=== PATIENT | female | born 1955 | race Caucasian/White ===

== ENCOUNTER 2018-08-24 07:30 | Day surgery (SDC) | payer MEDICARE, BC ==
[2018-08-24] MEDS ORDERED: Lactated Ringers 1,000 ML IV SCH (08:45)
[2018-08-24] MEDS ORDERED: Midazolam 1 MG/ML 2 ML SDV ONE (09:00)
[2018-08-24] MEDS ORDERED: fentaNYL 100 MCG/2 ML SDV ONE (09:00)
[2018-08-24] MEDS ORDERED: Propofol 200 MG/20 ML SDV ONE ×2 (09:00→09:47)
[2018-08-24 11:07] VITALS: BP 130/89
--- NOTE | 2018-08-24 11:50 | OR ---
DATE OF PROCEDURE: 08/24/2018 SURGEON: Jim Camacho MD PREOP DIAGNOSIS: History of colon polyps. POSTOP DIAGNOSES: Two small colon polyps, 30 cm and 10 cm from the anal verge, incomplete colonoscopy only to the right colon. PROCEDURE PERFORMED: Colonoscopy to the right colon with biopsy resection of 2 small colon polyps, 30 cm and 10 cm from the anal verge. ANESTHESIA: IV anesthesia with monitored anesthesia care. INDICATION: This 63-year-old white female is referred for a colonoscopy. She has history of colon polyps. Her last colonoscopic exam was done 5 years ago. I counseled her for the procedure including risks and alternatives and she gave her informed consent to proceed. PROCEDURE DETAILS: The patient was placed in the left lateral decubitus position. IV anesthesia was administered by the Anesthesia Service. Time-out was held. A rectal exam was performed, which was unremarkable. The flexible video Olympus colonoscope was introduced through her anus, up her rectum and out her colon all the way to the right colon. We attempted to reach the cecum, but we were unable to do this despite our best efforts. This included applying abdominal compression of the patient both the left lateral and supine positions. When it was obvious that we are not going to reach the cecum despite using the entire scope, the scope was slowly withdrawn examining the mucosa throughout. No mucosal abnormalities were noted till we reached 30 cm from the anal verge. Here, a small polyp was seen, which was removed with a few bites of biopsy forceps. The scope was withdrawn further with another small one seen 10 cm from anal verge, which also was removed with the biopsy forceps. The scope was brought back in the distal rectum where it was retroflexed. The distal rectum appeared unremarkable. The scope was straightened and removed. She tolerated the procedure well. We will order a barium enema for a week or two from now. Jim Camacho MD /[id number]
== END 2018-08-24 11:26 | disposition home or self-care (01) ==
LOC: JP.SDS 07:30
PROVIDERS: ATTEND Surgery
DX: Z12.11 Encounter for screening for malignant neoplasm of colon (principal); D12.5 Benign neoplasm of sigmoid colon; K62.1 Rectal polyp; K21.9 Gastro-esophageal reflux disease without esophagitis; E78.5 Hyperlipidemia, unspecified; F32.9 Major depressive disorder, single episode, unspecified; F17.200 Nicotine dependence, unspecified, uncomplicated; Z86.010 Personal history of colon polyps; Z88.5 Allergy status to narcotic agent; Z88.8 Allergy status to other drugs, medicaments and biological substances
CPT/HCPCS: 45380; J2250; J2704; J3010; J7120

== ENCOUNTER 2019-06-10 11:29 | Emergency (ER) | payer MEDICARE, BC ==
[2019-06-10] MEDS ORDERED: Albuterol/Ipratropium 3.0-0.5 MG/3 ML Neb Soln NEB ONE (12:02)
[2019-06-10 12:03] VITALS: BP 136/87; PULSE 91
[2019-06-10] MEDS ORDERED: methylPREDNISolone Sodium Succinate 125 MG/2 ML SDV IM ONE (12:05)
--- NOTE | 2019-06-10 12:08 | EDM.PDOC ---
ED HPI GENERAL MEDICAL PROBLEM - General Chief Complaint: Respiratory Problem Stated Complaint: CHEST CONGESTION Time Seen by Provider: 06/10/19 11:40 Source of Information: Reports: Patient History Limitations: Reports: No Limitations - History of Present Illness INITIAL COMMENTS - FREE TEXT/NARRATIVE: Started Wednesday; stayed in a motel, states it was "filthy". She has COPD, and that is when her breathing became more labored; cough and wheezing, unsure of fever. Lots of sputum/mucus production. Green and yellow. Onset: Gradual Location: Reports: Chest Improves with: Reports: None Worsens with: Reports: None Associated Symptoms: Reports: Cough, Weakness - Related Data Allergies Allergy/AdvReac Type Severity Reaction Status Date / Time codeine AdvReac Nausea Verified 08/23/18 10:03 hydrochlorothiazide AdvReac Abdominal Verified 08/23/18 10:03 [From Hyzaar] Pain losartan [From Hyzaar] AdvReac Abdominal Verified 08/23/18 10:03 Pain Home Meds: Home Meds Aspirin [Rex Chewable Aspirin] 81 mg PO DAILY 01/19/15 [History] Escitalopram [Lexapro] 20 mg PO DAILY 01/19/15 [History] Venlafaxine [Effexor XR] 75 mg PO DAILY 01/19/15 [History] Albuterol Sulfate [Proair Hfa] 8.5 gm IH Q4H PRN #2 hfa.aer.ad 01/25/15 [Rx] Estrogens, Conjugated [Premarin] 0.625 mg PO .TWICE WEEKLY 08/23/18 [History] Fluticasone Propionate [Flonase Allergy Relief] 2 spray NASBOTH DAILY 08/23/18 [ History] Multivitamin [Multiple Vitamins] 1 tab PO DAILY 08/23/18 [History] Tiotropium [Spiriva Handihaler] 1 cap INH DAILY 08/23/18 [History] amLODIPine Besylate [Amlodipine Besylate] 5 mg PO DAILY 08/23/18 [History] Past Medical History HEENT History: Reports: Impaired Vision, Sinusitis Other HEENT History: wears glasses Cardiovascular History: Reports: Hypertension, SOB on Exertion Respiratory History: Reports: COPD, SOB Gastrointestinal History: Reports: Colon Polyp, Hemorrhoids Genitourinary History: Reports: None 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, Musculoskeletal History: Reports: Arthritis Neurological History: Reports: Headaches, Chronic Psychiatric History: Reports: Depression Oncologic (Cancer) History: Reports: Other (See Below) Other Oncologic History: chondrosarcoma upper left arm - Infectious Disease History Infectious Disease History: Reports: Chicken Pox, Measles, Mumps, Rubella, Shingles - Past Surgical History HEENT Surgical History: Reports: Adenoidectomy, Cataract Surgery, Tonsillectomy Cardiovascular Surgical History: Reports: None Respiratory Surgical History: Reports: None GI Surgical History: Reports: Colonoscopy, Polypectomy Female Surgical History: Reports: Breast Biopsy, Hysterectomy, Salpingo- Oophorectomy Neurological Surgical History: Reports: None Musculoskeletal Surgical History: Reports: None Oncologic Surgical History: Reports: Other (See Below) Other Oncologic Surgeries/Procedures: upper left arm surgery r/t chondrosarcoma Dermatological Surgical History: Reports: None Social & Family History - Family History Cardiac: Reports: CAD, Pacemaker Oncologic: Reports: Lung - Caffeine Use Caffeine Use: Reports: Coffee ED ROS GENERAL - Review of Systems Review Of Systems: See Below Constitutional: Reports: Weakness HEENT: Reports: No Symptoms Respiratory: Reports: Shortness of Breath, Wheezing, Cough, Sputum Cardiovascular: Reports: No Symptoms GI/Abdominal: Reports: No Symptoms : Reports: No Symptoms Musculoskeletal: Reports: No Symptoms Skin: Reports: No Symptoms ED EXAM, GENERAL - Physical Exam Exam: See Below Exam Limited By: No Limitations General Appearance: Alert, WD/WN, No Apparent Distress Throat/Mouth: Normal Inspection, Normal Lips, Normal Teeth Head: Atraumatic, Normocephalic Neck: Normal Inspection, Supple, Non-Tender, Full Range of Motion Respiratory/Chest: Decreased Breath Sounds, Wheezing, Prolonged Expiration, Other (increased wob) Cardiovascular: Regular Rate, Rhythm GI/Abdominal: Normal Bowel Sounds, Soft, Non-Tender Back Exam: Full Range of Motion Extremities: Normal Inspection, Normal Range of Motion Neurological: Alert, Oriented, CN II-XII Intact Psychiatric: Normal Affect, Normal Mood Skin Exam: Warm, Intact Course - Vital Signs Last Recorded V/S: Last Vital Signs Temp 96.7 F 06/10/19 12:24 Pulse 91 06/10/19 12:24 Resp 20 06/10/19 12:24 BP 136/87 06/10/19 12:24 Pulse Ox 91 L 07/20/19 12:24 - Orders/Labs/Meds Orders: Active Orders 24 hr Category Date Time Status RT Aerosol Therapy [RC] ASDIRECTED Care 06/10/19 12:02 Active Meds: Medications Discontinued Medications Generic Name Dose Route Start Last Admin Trade Name Brayden PRN Reason Stop Dose Admin Albuterol/Ipratropium 3 ml 06/10/19 12:02 06/10/19 12:08 Duoneb 3.0-0.5 Mg/3 Ml NEB 06/10/19 12:03 3 ml ONETIME ONE Administration Methylprednisolone Sodium Succinate 125 mg 06/10/19 12:05 06/10/19 12:28 Solu-Medrol IM 06/10/19 12:06 125 mg ONETIME ONE Administration - Re-Assessments/Exams Free Text/Narrative Re-Assessment/Exam: 06/10/19 12:08 Duoneb ordered; 06/10/19 15:20 [place] better after neb treatment; Chest xray taken; awaiting results. Departure - Departure Time of Disposition: 13:37 Disposition: Home, Self-Care 01 Condition: Fair Clinical Impression: COPD exacerbation, Bronchitis, COPD, Severe chronic obstructive pulmonary disease - Discharge Information *PRESCRIPTION DRUG MONITORING PROGRAM REVIEWED*: Not Applicable *COPY OF PRESCRIPTION DRUG MONITORING REPORT IN PATIENT NARINDER: Not Applicable Instructions: Chronic Obstructive Pulmonary Disease, [id number] Referrals: PCP,None [Primary Care Provider] - Forms: ED Department Discharge Additional Instructions: Drink plenty of fluids Take medications as directed Follow up with your doctor next week Return to ER if symptoms worsen Call with questions. - Problem List & Annotations (1) COPD exacerbation SNOMED Code(s): 077833165 Code(s): J44.1 - CHRONIC OBSTRUCTIVE PULMONARY DISEASE W (ACUTE) EXACERBATION Status: Acute Priority: Medium - Problem List Review Problem List Initiated/Reviewed/Updated: Yes - My Orders Last 24 Hours: My Active Orders 06/10/19 12:02 RT Aerosol Therapy [RC] ASDIRECTED - Assessment/Plan Last 24 Hours: My Active Orders 06/10/19 12:02 RT Aerosol Therapy [RC] ASDIRECTED
--- NOTE | 2019-06-10 15:18 | CRLCR ---
HISTORY: Shortness of breath. FINDINGS: Two views of the chest are provided. The lungs are clear and there is no evidence for pleural effusion or pneumothorax. Cardiac silhouette size is within normal limits. Moderate aortic ectasia is noted. IMPRESSION: No findings for pneumonia. Dictated by Ted Kitchen MD @ Jun 10 2019 3:16PM Signed by Dr. Ted Kitchen @ Jun 10 2019 3:17PM
== END 2019-06-10 13:45 | disposition home or self-care (01) ==
LOC: JP.ED 11:29
DX: J44.1 Chronic obstructive pulmonary disease with (acute) exacerbation (principal); J40 Bronchitis, not specified as acute or chronic; I10 Essential (primary) hypertension; F32.9 Major depressive disorder, single episode, unspecified; M19.90 Unspecified osteoarthritis, unspecified site; Z79.82 Long term (current) use of aspirin; Z79.899 Other long term (current) drug therapy; Z98.49 Cataract extraction status, unspecified eye; Z98.890 Other specified postprocedural states; Z90.710 Acquired absence of both cervix and uterus; Z88.5 Allergy status to narcotic agent; Z88.8 Allergy status to other drugs, medicaments and biological substances
CPT/HCPCS: 71046; 94640; 96372; 99284; J2930; J7620-GY

== ENCOUNTER 2019-06-29 09:07 | Inpatient (IN) | payer MEDICARE, BC ==
[2019-06-29] MEDS ORDERED: HYDROmorphone 0.5 MG/0.5 ML Syringe IVPUSH ONE ×2 (09:33→14:40)
--- NOTE | 2019-06-29 09:38 | EDM.PDOC ---
ED HPI GENERAL MEDICAL PROBLEM - General Chief Complaint: Abdominal Pain Stated Complaint: RT SIDE ABD AND BACK PAIN Time Seen by Provider: 06/29/19 09:25 Source of Information: Reports: Patient History Limitations: Reports: No Limitations - History of Present Illness INITIAL COMMENTS - FREE TEXT/NARRATIVE: 64-year-old female who arrives here emergency room very uncomfortable with right lower quadrant and right flank pain for the past couple of days. It became markedly worse overnight. No fevers or chills, no bowel changes or dysuria. She was recently treated for bronchitis. Onset: Gradual Duration: Day(s): (12-24 hours) Location: Reports: Abdomen, Back Worsens with: Reports: Movement Associated Symptoms: Reports: Cough, Malaise. Denies: Chest Pain, Fever/Chills , Nausea/Vomiting Right Lower Abdomen Pain Score (Numeric/FACES): 9 - Related Data Allergies Allergy/AdvReac Type Severity Reaction Status Date / Time codeine AdvReac Nausea Verified 06/29/19 09:21 hydrochlorothiazide AdvReac Abdominal Verified 06/29/19 09:21 [From Hyzaar] Pain losartan [From Hyzaar] AdvReac Abdominal Verified 06/29/19 09:21 Pain Home Meds: Home Meds Aspirin [Rex Chewable Aspirin] 81 mg PO DAILY 01/19/15 [History] Escitalopram [Lexapro] 20 mg PO DAILY 01/19/15 [History] Venlafaxine [Effexor XR] 75 mg PO DAILY 01/19/15 [History] Albuterol Sulfate [Proair Hfa] 8.5 gm IH Q4H PRN #2 hfa.aer.ad 01/25/15 [Rx] Estrogens, Conjugated [Premarin] 0.625 mg PO .TWICE WEEKLY 08/23/18 [History] Fluticasone Propionate [Flonase Allergy Relief] 2 spray NASBOTH DAILY 08/23/18 [ History] Multivitamin [Multiple Vitamins] 1 tab PO DAILY 08/23/18 [History] Tiotropium [Spiriva Handihaler] 1 cap INH DAILY 08/23/18 [History] amLODIPine Besylate [Amlodipine Besylate] 5 mg PO DAILY 08/23/18 [History] Past Medical History HEENT History: Reports: Impaired Vision, Sinusitis Other HEENT History: wears glasses Cardiovascular History: Reports: Hypertension, SOB on Exertion Respiratory History: Reports: COPD, SOB Gastrointestinal History: Reports: Colon Polyp, Hemorrhoids Genitourinary History: Reports: None 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, Musculoskeletal History: Reports: Arthritis Neurological History: Reports: Headaches, Chronic Psychiatric History: Reports: Depression Oncologic (Cancer) History: Reports: Other (See Below) Other Oncologic History: chondrosarcoma upper left arm - Infectious Disease History Infectious Disease History: Reports: Chicken Pox, Measles, Mumps, Rubella, Shingles - Past Surgical History HEENT Surgical History: Reports: Adenoidectomy, Cataract Surgery, Tonsillectomy GI Surgical History: Reports: Colonoscopy, Polypectomy Female Surgical History: Reports: Breast Biopsy, Hysterectomy, Salpingo- Oophorectomy Oncologic Surgical History: Reports: Other (See Below) Other Oncologic Surgeries/Procedures: upper left arm surgery r/t chondrosarcoma Social & Family History - Family History Cardiac: Reports: CAD, Pacemaker Oncologic: Reports: Lung - Tobacco Use Smoking Status *Q: Current Every Day Smoker Years of Tobacco use: 45 Packs/Tins Daily: 0.5 - Caffeine Use Caffeine Use: Reports: Coffee - Alcohol Use Days Per Week of Alcohol Use: 7 Number of Drinks Per Day: 2 Total Drinks Per Week: 14 - Recreational Drug Use Recreational Drug Use: No ED ROS GENERAL - Review of Systems Review Of Systems: See Below Constitutional: Denies: Fever, Chills HEENT: Reports: No Symptoms Respiratory: Reports: Shortness of Breath, Wheezing, Cough GI/Abdominal: Reports: Abdominal Pain. Denies: Nausea, Vomiting : Reports: Flank Pain (Right side) Skin: Reports: No Symptoms Neurological: Denies: Headache ED EXAM, GENERAL - Physical Exam Exam: See Below Exam Limited By: No Limitations General Appearance: Alert, Mild Distress (Looks fairly uncomfortable) Eye Exam: Bilateral Eye: Normal Inspection (No jaundice) Respiratory/Chest: Wheezing (Scattered expiratory wheezes are still heard along with a few rhonchi) Cardiovascular: Regular Rate, Rhythm GI/Abdominal: Normal Bowel Sounds, Tender (Very tender along the right anterior abdomen and right lower quadrant with some guarding in the lower quadrant. Equivocal rebound tenderness) Neurological: Alert, Oriented Psychiatric: Anxious Skin Exam: Warm, Dry Course - Vital Signs Last Recorded V/S: Last Vital Signs Temp 98.1 F 06/29/19 16:10 Pulse 100 06/29/19 16:21 Resp 17 06/29/19 16:21 BP 133/76 06/29/19 16:21 Pulse Ox 90 L 06/29/19 16:21 - Orders/Labs/Meds Orders: Active Orders 24 hr Category Date Time Status EKG Documentation Completion [RC] ASDIRECTED Care 06/29/19 13:57 Active Sodium Chloride 0.9% [Normal Saline] 1,000 ml Med 06/29/19 09:45 Active IV ASDIRECTED EKG 12 Lead [EK] Routine Ther 06/29/19 13:56 Ordered Medication Orders Hydrocodone Bitart/Acetaminophen ([place] 325-5 Mg) 2 tab PO Q4H PRN PRN Reason: Pain (moderate 4-6) Albuterol (Ventolin Hfa) 8.5 gm INH Q4H PRN PRN Reason: Shortness of Breath Benzocaine/Menthol (Cepacol Sore Throat) 1 lozenge MUCMEM Q1H PRN PRN Reason: Sore Throat Bisacodyl (Dulcolax) 5 mg PO DAILY PRN PRN Reason: Constipation Ropivacaine 36 ml/Dexamethasone 8 mg/Epinephrine HCl 0.4 mg/ Sodium Chloride 41.6 ml 0 ml NERVRT ASDIRECTED [facility] Docusate Sodium (Colace) 100 mg PO BID PRN PRN Reason: Constipation Fentanyl (Sublimaze) 50 mcg IVPUSH Q1H PRN PRN Reason: Pain (severe 7-10) Hydroxyzine HCl (Vistaril) 50 mg IM Q4H PRN PRN Reason: Nausea Sodium Chloride (Normal Saline) 1,000 mls @ 500 mls/hr IV ASDIRECTED [facility] Last Admin: 06/29/19 09:41 Dose: 500 mls/hr Piperacillin/Tazobactam/ (Dextrose 3.375 gm/ Premix) 50 mls @ 100 mls/hr IV Q6H [facility] Sodium Chloride (Normal Saline) 1,000 mls @ 125 mls/hr IV ASDIRECTED [facility] Non-Formulary Medication (Fluticasone Propionate [Flonase Allergy Relief]) 2 spray NASBOTH DAILY [facility] Senna/Docusate Sodium (Senna Plus) 1 tab PO BID PRN PRN Reason: Constipation Venlafaxine HCl (Effexor Xr) 75 mg PO DAILY [facility] Labs: Laboratory Tests 06/29/19 06/29/19 06/29/19 Range/Units 09:33 09:40 09:40 WBC 7.6 (4.5-11.0) K/uL RBC 4.81 (3.30-5.50) M/uL Hgb 14.7 (12.0-15.0) g/dL Hct 44.6 (36.0-48.0) % MCV 93 (80-98) fL MCH 31 (27-31) pg MCHC 33 (32-36) % Plt Count 263 (150-400) K/uL Neut % (Auto) 75 H (36-66) % Lymph % (Auto) 17 L (24-44) % [facility] % (Auto) 7 H (2-6) % Eos % (Auto) 1 L (2-4) % Baso % (Auto) 0 (0-1) % Sodium 135 L (140-148) mmol/L Potassium 4.1 (3.6-5.2) mmol/L Chloride 97 L (100-108) mmol/L Carbon Dioxide 29 (21-32) mmol/L Anion Gap 13.1 (5.0-14.0) mmol/L BUN 10 (7-18) mg/dL Creatinine 0.7 (0.6-1.0) mg/dL Est Cr Clr Drug Dosing 72.10 mL/min Estimated GFR (MDRD) > 60 (>60) Glucose 94 (74-106) mg/dL Calcium 9.3 (8.5-10.1) mg/dL Total Bilirubin 0.5 D (0.2-1.0) mg/dL AST 19 (15-37) U/L ALT 24 (12-78) U/L Alkaline Phosphatase 100 (46-116) U/L Total Protein 7.7 (6.4-8.2) g/dL Albumin 3.8 (3.4-5.0) g/dL Globulin 3.9 H (2.3-3.5) g/dL Albumin/Globulin Ratio 1.0 L (1.2-2.2) Urine Color Yellow (YELLOW) Urine Appearance Clear (CLEAR) Urine pH 7.0 (5.0-8.0) Ur Specific [place] 1.015 (1.008-1.030) Urine Protein Negative (NEGATIVE) mg/dL Urine Glucose (UA) Normal (NEGATIVE) mg/dL Urine Ketones Negative (NEGATIVE) mg/dL Urine Occult Blood Negative (NEGATIVE) Urine Nitrite Negative (NEGATIVE) Urine Bilirubin Negative (NEGATIVE) Urine Urobilinogen Normal (0.2-1.0) EU/dL Ur Leukocyte Esterase Negative (NEGATIVE) Urine RBC 0-5 (0-5) Urine WBC 0-5 (0-5) Ur Epithelial Cells Rare Amorphous Sediment Not seen Urine Bacteria Rare Urine Mucus Not seen Meds: Medications Generic Name Dose Route Start Last Admin Trade Name Freq PRN Reason Stop Dose Admin Hydrocodone Bitart/Acetaminophen 2 tab 06/29/19 16:04 [place] 325-5 Mg PO Q4H PRN Pain (moderate 4-6) Albuterol 8.5 gm 06/29/19 16:06 Ventolin Hfa INH Q4H PRN Shortness of Breath Benzocaine/Menthol 1 lozenge 06/29/19 16:04 Cepacol Sore Throat MUCMEM Q1H PRN Sore Throat Bisacodyl 5 mg 06/29/19 16:04 Dulcolax PO DAILY PRN Constipation Ropivacaine 36 ml/ 0 ml 06/29/19 15:30 Dexamethasone 8 mg/ NERVRT Epinephrine HCl 0.4 mg/ Sodium ASDIRECTED [facility] Chloride 41.6 ml Docusate Sodium 100 mg 06/29/19 16:04 Colace PO BID PRN Constipation Fentanyl 50 mcg 06/29/19 16:04 Sublimaze IVPUSH Q1H PRN Pain (severe 7-10) Hydroxyzine HCl 50 mg 06/29/19 16:04 Vistaril IM Q4H PRN Nausea Sodium Chloride 1,000 mls @ 500 mls/hr 06/29/19 09:45 06/29/19 09:41 Normal Saline IV 500 mls/hr ASDIRECTED [facility] Administration Piperacillin/Tazobactam/ 50 mls @ 100 mls/hr 06/29/19 20:00 Dextrose 3.375 gm/ Premix IV Q6H [facility] Sodium Chloride 1,000 mls @ 125 mls/hr 06/29/19 16:15 Normal Saline IV ASDIRECTED [facility] Non-Formulary Medication 2 spray 06/30/19 09:00 Fluticasone Propionate [Flonase Allergy Relief] NASBOTH DAILY [facility] Senna/Docusate Sodium 1 tab 06/29/19 16:04 Senna Plus PO BID PRN Constipation Venlafaxine HCl 75 mg 06/30/19 09:00 Effexor Xr PO DAILY [facility] Discontinued Medications Generic Name Dose Route Start Last Admin Trade Name Paulq PRN Reason Stop Dose Admin Albuterol/Ipratropium 3 ml 06/29/19 15:00 06/29/19 15:06 Duoneb 3.0-0.5 Mg/3 Ml NEB 06/29/19 15:01 3 ml ONETIME ONE Administration Bupivacaine HCl/Epinephrine Bitart Confirm 06/29/19 15:11 Marcaine 0.5%/Epinephrine 1:200,000 Administered 06/29/19 15:12 Dose 50 ml .ROUTE .STK-MED ONE Dexamethasone Confirm 06/29/19 15:06 Dexamethasone Administered 06/29/19 15:07 Dose 4 mg .ROUTE .STK-MED ONE Fentanyl Confirm 06/29/19 15:06 Sublimaze Administered 06/29/19 15:07 Dose 250 mcg .ROUTE .STK-MED ONE Glycopyrrolate Confirm 06/29/19 15:06 Robinul Administered 06/29/19 15:07 Dose 1 mg .ROUTE .STK-MED ONE Hydromorphone HCl 0.5 mg 06/29/19 09:33 06/29/19 09:42 Dilaudid IVPUSH 06/29/19 09:34 0.5 mg ONETIME ONE Administration Hydromorphone HCl 0.5 mg 06/29/19 14:40 06/29/19 14:48 Dilaudid IVPUSH 06/29/19 14:41 0.5 mg ONETIME ONE Administration Piperacillin Sod/Tazobactam 50 mls @ 100 mls/hr 06/29/19 14:00 06/29/19 14:47 Sod 3.375 gm/ Sodium Chloride IV 100 mls/hr Q6H [facility] Administration Neostigmine Methylsulfate Confirm 06/29/19 15:06 Neostigmine Administered 06/29/19 15:07 Dose 5 mg .ROUTE .STK-MED ONE Ondansetron HCl Confirm 06/29/19 15:06 Zofran Administered 06/29/19 15:07 Dose 4 mg .ROUTE .STK-MED ONE Propofol Confirm 06/29/19 15:06 Diprivan 20 Ml Administered 06/29/19 15:07 Dose 200 mg .ROUTE .STK-MED ONE Rocuronium [place] Confirm 06/29/19 15:06 Zemuron Administered 06/29/19 15:07 Dose 50 mg .ROUTE .STK-MED ONE Succinylcholine Chloride Confirm 06/29/19 15:06 Quelicin Administered 06/29/19 15:07 Dose 200 mg .ROUTE .STK-MED ONE Sugammadex Sodium Confirm 06/29/19 16:04 Bridion Administered 06/29/19 16:05 Dose 200 mg .ROUTE .STK-MED ONE - Re-Assessments/Exams Free Text/Narrative Re-Assessment/Exam: 06/29/19 09:37 IV was started and the patient was given 500 mL of normal saline an hour, and 0.5 mg of IV Dilaudid. CBC CMP and UA were obtained. A CT scan of the abdomen and pelvis without contrast will be obtained. 06/29/19 16:25 White count was normal but CT showed mild inflammation around the appendix. Dr. Patterson of the surgical department was consulted to evaluate the patient for possible admission and treatment for acute appendicitis. Departure - Departure Time of Disposition: 15:37 Disposition: Admitted As Inpatient 65 Clinical Impression: Abdominal pain Qualifiers: Abdominal location: right lower quadrant Qualified Code(s): R10.31 - Right lower quadrant pain Appendicitis Qualifiers: Appendicitis type: acute appendicitis Acute appendicitis type: with localized peritonitis Appendicitis gangrene presence: without gangrene Appendicitis perforation presence: without perforation - Discharge Information - My Orders Last 24 Hours: My Active Orders 06/29/19 09:45 Sodium Chloride 0.9% [Normal Saline] 1,000 ml IV ASDIRECTED - Assessment/Plan Last 24 Hours: My Active Orders 06/29/19 09:45 Sodium Chloride 0.9% [Normal Saline] 1,000 ml IV ASDIRECTED
[2019-06-29] MEDS ORDERED: Sodium Chloride 0.9% 1,000 ML IV SCH (09:45)
--- NOTE | 2019-06-29 11:00 | CRLCT ---
INDICATION: Right abdominal and right flank pain. TECHNIQUE: A CT volumetric acquisition was performed of the abdomen and pelvis without intravenous contrast. Please note that all CT scans at this facility use dose modulation, iterative reconstruction, and/or weight-based dosing when appropriate to reduce radiation dose to as low as reasonably achievable. COMPARISON: The report from a CT abdomen/pelvis 12/06/2012 was reviewed, however no images available. FINDINGS: The unenhanced liver, gallbladder, spleen, pancreas, kidneys, and adrenal glands are negative. No urinary calculi. No hydronephrosis. No bowel dilation. Moderate amount of stool throughout the colon. The appendix contains air and is not dilated, however there is a minimal amount of fat stranding surrounding the distal portion of the appendix (series 2 images 109-112). This is of uncertain significance. No intraperitoneal free air or fluid. Aortoiliac vascular calcifications. Rectus diastasis with overlying intact fascia in the infraumbilical region containing a knuckle of nonobstructed bowel (series 2, image 131). Thoracolumbar curve. Degenerative changes of the spine and sacroiliac joints. The lung bases are clear. IMPRESSION: 1. Minimal amount of fat stranding surrounding the distal appendix which is otherwise nondilated. This is of uncertain significance. 2. No other acute findings in the abdomen or pelvis. Please note that all CT scans at this facility use dose modulation, iterative reconstruction, and/or weight-based dosing when appropriate to reduce radiation dose to as low as reasonably achievable. Dictated by Sada Ralph MD @ Jun 29 2019 10:40AM Signed by Dr. Sada Ralph @ Jun 29 2019 10:58AM
[2019-06-29] MEDS ORDERED: Piperacillin/Tazobactam 3.375 GM in Sodium Chloride 0.9% 50 ML IV SCH (14:00)
[2019-06-29] MEDS ORDERED: Albuterol/Ipratropium 3.0-0.5 MG/3 ML Neb Soln NEB ONE (15:00)
[2019-06-29] MEDS ORDERED: Rocuronium 50 MG/5 ML Vial ONE (15:06)
[2019-06-29] MEDS ORDERED: Succinylcholine 200 MG/10 ML MDV ONE (15:06)
[2019-06-29] MEDS ORDERED: Ondansetron 4 MG/2 ML SDV ONE (15:06)
[2019-06-29] MEDS ORDERED: Propofol 200 MG/20 ML SDV ONE (15:06)
[2019-06-29] MEDS ORDERED: Dexamethasone 4 MG/ML SDV ONE (15:06)
[2019-06-29] MEDS ORDERED: fentaNYL 250 MCG/5 ML SDV ONE (15:06)
[2019-06-29] MEDS ORDERED: Glycopyrrolate 0.2 MG/ML 5 ML MDV ONE (15:06)
[2019-06-29] MEDS ORDERED: Neostigmine Methylsulfate 1 MG/ML 5 ML Syringe ONE (15:06)
[2019-06-29] MEDS ORDERED: Bupivacaine 0.5%/EPINEPHrine 1:200,000 50 ML MDV ONE (15:11)
[2019-06-29] MEDS ORDERED: Ropivacaine 36 ML, dexAMETHasone 8 MG, EPINEPHrine 0.4 MG, Sodium Chloride 0.9% 41.6 ML NERVRT SCH ×4 (15:30)
[2019-06-29] MEDS ORDERED: fentaNYL 100 MCG/2 ML SDV IVPUSH PRN (16:04)
[2019-06-29] MEDS ORDERED: hydrOXYzine HCl 100 MG/2 ML SDV IM PRN (16:04)
[2019-06-29] MEDS ORDERED: Benzocaine/Cetylpyridinium/Menthol Lozenge MUCMEM PRN (16:04)
[2019-06-29] MEDS ORDERED: Sugammadex Sodium 200 MG/2 ML VIAL ONE (16:04)
[2019-06-29] MEDS ORDERED: Acetaminophen/HYDROcodone 325-5 MG Tab PO PRN (16:04)
[2019-06-29] MEDS ORDERED: Bisacodyl 5 MG Tab PO PRN (16:04)
[2019-06-29] MEDS ORDERED: Docusate Sodium 100 MG Cap PO PRN (16:04)
[2019-06-29] MEDS ORDERED: Albuterol 8 GM Inhaler INH PRN (16:06)
[2019-06-29] MEDS: Sodium Chloride 0.9% 1,000 ML IV SCH (18:39)
[2019-06-29] MEDS: Piperacillin/Tazobactam/Dext 3.375 GM in Premix Bag 1 BAG IV SCH (20:17)
[2019-06-29] MEDS ORDERED: Albuterol 0.083% 2.5 MG/3 ML Neb Soln NEB PRN (20:33)
[2019-06-29] MEDS ORDERED: Albuterol/Ipratropium 3.0-0.5 MG/3 ML Neb Soln NEB SCH (21:00)
[2019-06-29] MEDS: Albuterol/Ipratropium 3.0-0.5 MG/3 ML Neb Soln NEB SCH (21:44)
[2019-06-30] MEDS: Piperacillin/Tazobactam/Dext 3.375 GM in Premix Bag 1 BAG IV SCH ×3 (02:33→13:49)
[2019-06-30] MEDS: Sodium Chloride 0.9% 1,000 ML IV SCH (03:48)
--- NOTE | 2019-06-30 03:52 | CRLCR ---
INDICATION: Shortness of breath TECHNIQUE: Chest radiograph 2 views COMPARISON: 06/10/2019 FINDINGS: Mediastinum: The mediastinum is normal in appearance. The heart silhouette is normal in size and morphology. Minimal elevation left hemidiaphragm noted. Lung: Mild left basilar atelectasis is present. No sign of pleural effusion seen. No pneumothorax is identified. left proximal humerus but is partially obscured by overlying tubing material. IMPRESSIONS: 1. Mild left basilar atelectasis is present. 2. There may be an ill-defined sclerotic lesion in the left proximal humerus but is partially obscured by overlying tubing material. Dedicated views of the humerus recommended. Dictated by Jai Haas MD @ 06/30/2019 3:51:11 AM Dictated by: Jai Haas MD @ 06/30/2019 03:51:19 (Electronically Signed)
[2019-06-30] MEDS: Albuterol/Ipratropium 3.0-0.5 MG/3 ML Neb Soln NEB SCH ×2 (06:57→10:54)
[2019-06-30] MEDS ORDERED: Venlafaxine 75 MG Cap.ER PO SCH (09:00)
[2019-06-30] MEDS ORDERED: Fluticasone Propionate Nasal Spray 16 GM Bottle NASBOTH SCH (09:00)
--- NOTE | 2019-06-30 11:05 | PN ---
DATE OF SERVICE: 06/30/2019 SUBJECTIVE: The patient is doing very well. Pain is well controlled. She is subjectively feeling significantly better compared to preoperative status. OBJECTIVE: VITAL SIGNS: Vital signs are stable. CARDIOVASCULAR: Regular rhythm and rate. RESPIRATORY: Lungs are clear to auscultation bilaterally. ABDOMEN: Incisions healing well injury. ASSESSMENT: Status post laparoscopic appendectomy. PLAN: The patient will undergo 24 hours of antibiotics and be discharged. Please see discharge summary for further details. Vel Patterson MD /[id number]
--- NOTE | 2019-06-30 11:11 | DISCH ---
DISCHARGE DIAGNOSIS: Status post laparoscopic appendectomy. SUMMARY OF HOSPITAL COURSE: A pleasant 64-year-old female who underwent uneventful laparoscopic appendectomy. The patient had 8/10 pain preoperatively, and postoperatively, she is doing quite well. No nausea, vomiting, shortness of breath, or chest pain. She is passing gas. She is afebrile. White blood cell count is normal. FOLLOWUP: Follow up with Surgery in 7 to 14 days. ACTIVITY: No lifting greater than 30 pounds x30 days. DISCHARGE MEDICATIONS: Please see MAR, but include meloxicam for pain.
[2019-06-30 11:21] VITALS: BP 137/83; PULSE 99
--- NOTE | 2019-07-13 11:25 | OR ---
DATE OF PROCEDURE: 06/29/2019 SURGEON: Vel Patterson MD PROCEDURE: Laparoscopic appendectomy. PREOPERATIVE DIAGNOSIS: Appendicitis. POSTOPERATIVE DIAGNOSIS: Appendicitis. COMPLICATIONS: None. RECREATION MANAGER: None. ANESTHESIA: General/local. RISKS: Risks, benefits, alternatives, and limitations including, but not limited to infection, bleeding, injury to abdominal structures, abscess formation, the possibility of open surgery, and other risks not listed here were explained to the patient, who wished to proceed. PROCEDURE IN DETAIL: The patient was placed in supine position. A curvilinear supraumbilical incision was made. A Veress needle was used to enter the abdomen without abnormality. A drop test was performed without abnormality. An Optiview trocar subsequently followed. No evidence of enterotomy or injuries noted during entry. An additional 10 and two 5 mm ports were entered under direct visualization. The appendix was readily identified. This was consistent with early appendicitis, but no evidence of abscess or perforation. The appendix was tented from the cecum. This was transected using 2 aguirre load staplers. This was delivered through the umbilical port without difficulty. The staple line was inspected for bleeding, none was noted. The pressure was lowered to 7. No additional bleeding was noted. The abdomen was thoroughly irrigated. The liquid was removed. Approximately 1000 mL of liquid was removed. The patient was turned in multiple positions to maximize removal of the fluid. The fluid was removed from around the liver in the splenic area and in the pelvis, along with around the area of the appendicitis. The air was removed. The ports were irrigated and closed with 3-0 Vicryl and 4-0 Prolene and Dermabond was applied. The patient tolerated the procedure well. Vel Patterson MD /[id number]
== END 2019-06-30 15:02 | disposition home or self-care (01) | DRG 343 ==
LOC: JP.ED 09:07 → JP.MS 13:58
PROVIDERS: ADMIT Surgery; ATTEND Surgery
PROC: 0DTJ4ZZ Resection of Appendix, Percutaneous Endoscopic Approach (ICD-10-PCS; principal; 2019-06-29)
DX: K35.80 Unspecified acute appendicitis (principal); I10 Essential (primary) hypertension; H54.7 Unspecified visual loss; J44.9 Chronic obstructive pulmonary disease, unspecified; Z86.010 Personal history of colon polyps; M19.90 Unspecified osteoarthritis, unspecified site; F32.9 Major depressive disorder, single episode, unspecified; G89.29 Other chronic pain; R51 Headache; Z85.828 Personal history of other malignant neoplasm of skin; Z79.82 Long term (current) use of aspirin; Z79.899 Other long term (current) drug therapy; Z88.5 Allergy status to narcotic agent; Z88.8 Allergy status to other drugs, medicaments and biological substances; F17.200 Nicotine dependence, unspecified, uncomplicated
CPT/HCPCS: 36415; 74176; 80053; 81001; 85025; 96361; 96374; 99284; 99285; J1170; J7030; 71046; 80048; 88304; 93005; 94640; A9270-GY; J0171; J0330; J1100; J2405; J2543; J2704; J2710; J2795; J3010; J3490; J7050; J7620-GY

== ENCOUNTER 2020-07-16 07:46 | Day surgery (SDC) | payer MEDICARE, BC ==
[2020-07-16] MEDS ORDERED: Midazolam 1 MG/ML 2 ML SDV ONE (07:52)
[2020-07-16] MEDS ORDERED: fentaNYL 100 MCG/2 ML SDV ONE (07:52)
[2020-07-16] MEDS ORDERED: Propofol 200 MG/20 ML SDV ONE (07:52)
[2020-07-16] MEDS ORDERED: Dextrose 5%-Lactated Ringers 1,000 ML IV SCH (08:15)
[2020-07-16] MEDS ORDERED: Pantoprazole 40 MG Vial IVPUSH ONE (10:27)
[2020-07-16 12:29] VITALS: BP 140/84; PULSE 73
--- NOTE | 2020-07-30 14:27 | OR ---
DATE OF PROCEDURE: 07/16/2020 SURGEON: Aryan Condon MD PREOPERATIVE DIAGNOSIS: Recurrent gastroesophageal reflux disease, status post EndoCinch procedure. POSTOPERATIVE DIAGNOSES: 1. Recurrent gastroesophageal reflux disease, status post EndoCinch procedure with internal development of large hiatal hernia. 2. Moderate distal gastritis and proximal duodenitis. OPERATIVE PROCEDURES: Esophagogastroduodenoscopy with: 1. Biopsies of esophagogastric junction for histologic evaluation. 2. Biopsies of antrum for CLOtest. ANESTHESIA: IV sedation. INDICATION FOR PROCEDURE: This is a 65-year-old who is status post Madalyn fundoplication procedure 19 years ago, i.e. in 2000, who up until the last year was noted to have a good result. She now is having some increasing problems with reflux and is undergoing upper endoscopy for diagnostic evaluation. Potential risks of the procedure including bleeding and perforation were discussed, and the patient wishes to proceed. DETAILS OF PROCEDURE: The patient was taken to the operating room and placed in a left lateral decubitus position. IV sedation was administered, after which the upper GI endoscope was passed orally through the length of the esophagus into the stomach with retroflexion view of the fundus and thereafter through the pyloric channel and into the proximal duodenum. Findings included normal hypopharynx, larynx, upper esophageal sphincter, and esophageal body. At the area of EG junction, the patient has a roughly 4 cm hiatal hernia. This appeared to have some paraesophageal component to it on retroflexion within the stomach. There was only some [id number] inflammation in the distal esophagus and no obvious upward extension of the gastroesophageal junction mucosal line. The EndoCinch stitches were still visible. Within the remainder of the stomach, there was some nzyg-[id number]-[id number] gastritis in the antrum, duodenitis, and duodenal bulb after which those findings normalized. The biopsies were then obtained from the antrum and sent for CLOtest for H pylori. Multiple biopsies were then obtained from esophagogastric junction and sent for histologic evaluation. No bleeding from the biopsy sites was seen and the procedure was then concluded. The patient's recent myocardial perfusion nuclear scan was reviewed. There was some suggestion of a small area of reversible ischemia in the base of the inferior wall. The scan was reviewed with Dr. Sheets, who felt this was extremely minimal and probably not clinically significant. Given this, the plan will be to proceed at this point with Madalyn fundoplication. The patient will be following back with regard to scheduling this procedure. Aryan Condon MD /[id number]
== END 2020-07-16 12:15 | disposition home or self-care (01) ==
LOC: JP.SDS 07:46
PROVIDERS: ATTEND Surgery
DX: K29.00 Acute gastritis without bleeding (principal); K29.80 Duodenitis without bleeding; B96.81 Helicobacter pylori [H. pylori] as the cause of diseases classified elsewhere; K44.9 Diaphragmatic hernia without obstruction or gangrene; F32.9 Major depressive disorder, single episode, unspecified; K21.0 Gastro-esophageal reflux disease with esophagitis; J44.9 Chronic obstructive pulmonary disease, unspecified; F17.200 Nicotine dependence, unspecified, uncomplicated; I10 Essential (primary) hypertension; Z98.84 Bariatric surgery status
CPT/HCPCS: 36415; 43239; 80053; 83735; 83880; 84100; 85027; 87081; 88305; 88312; C9113; J2250; J2704; J3010; J7121

== ENCOUNTER 2022-09-01 06:00 | Day surgery (SDC) | payer MEDICARE, BC ==
[2022-09-01] MEDS ORDERED: Bupivacaine 0.5% 50 ML MDV ONE (08:00)
[2022-09-01] MEDS ORDERED: Ketamine 500 MG/5 ML MDV IV SCH (08:00)
[2022-09-01] MEDS ORDERED: Ketamine 17 MG in Sodium Chloride 0.9% 19.83 ML IV SCH (08:00)
[2022-09-01] MEDS ORDERED: Ropivacaine 32 ML, dexAMETHasone 8 MG, EPINEPHrine 0.4 MG, Sodium Chloride 0.9% 45.6 ML NERVRT SCH ×4 (08:00)
[2022-09-01] MEDS ORDERED: Lidocaine 1% with EPINEPHrine 1:100,000 50 ML MDV ONE (08:00)
[2022-09-01] MEDS ORDERED: Neostigmine Methylsulfate 1 MG/ML 5 ML Syringe ONE (08:40)
[2022-09-01] MEDS ORDERED: Glycopyrrolate 0.2 MG/ML 5 ML MDV ONE (08:40)
[2022-09-01] MEDS ORDERED: Propofol 200 MG/20 ML SDV ONE (08:40)
[2022-09-01] MEDS ORDERED: Dexamethasone 4 MG/ML SDV ONE (08:40)
[2022-09-01] MEDS ORDERED: Ondansetron 4 MG/2 ML SDV ONE (08:40)
[2022-09-01] MEDS ORDERED: Rocuronium 50 MG/5 ML Vial ONE (08:40)
[2022-09-01] MEDS ORDERED: fentaNYL 100 MCG/2 ML SDV ONE ×3 (08:40)
[2022-09-01] MEDS ORDERED: Succinylcholine 200 MG/10 ML MDV ONE (08:40)
[2022-09-01] MEDS ORDERED: Acetaminophen 500 MG Tab PO SCH (09:20)
[2022-09-01] MEDS ORDERED: Scopolamine 1.5 MG Transdermal Patch TRDERM SCH (09:20)
[2022-09-01] MEDS ORDERED: Albuterol/Ipratropium 3.0-0.5 MG/3 ML Neb Soln NEB SCH (09:30)
[2022-09-01] MEDS ORDERED: Dextrose 5%-Lactated Ringers 1,000 ML IV SCH (09:50)
[2022-09-01] MEDS ORDERED: cefOXitin 2 GM in Sodium Chloride 0.9% 50 ML IV SCH (11:30)
[2022-09-01] MEDS ORDERED: Dextrose 5%-Lactated Ringers 1,000 ML IV ONE (15:15)
[2022-09-01] MEDS ORDERED: HYDROmorphone 0.5 MG/0.5 ML Syringe IVPUSH ONE (16:50)
[2022-09-01] MEDS ORDERED: cefOXitin 2 GM in Sodium Chloride 0.9% 50 ML IV ONE ×2 (18:10→23:59)
[2022-09-01] MEDS ORDERED: Pantoprazole 40 MG Vial IV ONE (21:00)
[2022-09-01] MEDS ORDERED: HYDROmorphone 2 MG Tab PO ONE (21:40)
[2022-09-02] MEDS ORDERED: Dextrose 5%-Lactated Ringers 1,000 ML IV ONE (00:01)
[2022-09-02] MEDS ORDERED: HYDROmorphone 2 MG Tab PO ONE (05:15)
[2022-09-02] MEDS ORDERED: cefOXitin 2 GM in Sodium Chloride 0.9% 50 ML IV ONE (05:30)
== END 2022-09-02 09:00 | disposition home or self-care (01) ==
LOC: JP.SDS 06:00
PROVIDERS: ATTEND Surgery
DX: K81.1 Chronic cholecystitis (principal); K55.069 Acute infarction of intestine, part and extent unspecified; K82.8 Other specified diseases of gallbladder; R59.0 Localized enlarged lymph nodes; K42.0 Umbilical hernia with obstruction, without gangrene; I10 Essential (primary) hypertension; E78.00 Pure hypercholesterolemia, unspecified; F32.9 Major depressive disorder, single episode, unspecified; K21.9 Gastro-esophageal reflux disease without esophagitis; F17.200 Nicotine dependence, unspecified, uncomplicated; J42 Unspecified chronic bronchitis; Z90.49 Acquired absence of other specified parts of digestive tract; Z79.899 Other long term (current) drug therapy; Z98.890 Other specified postprocedural states; Z90.710 Acquired absence of both cervix and uterus; Z96.89 Presence of other specified functional implants; Z88.5 Allergy status to narcotic agent; Z88.6 Allergy status to analgesic agent; Z88.1 Allergy status to other antibiotic agents; Z88.2 Allergy status to sulfonamides
CPT/HCPCS: 36415; 38570; 47562; 58662; 82247; 84075; 85027; 88302; 88304; 88305; 94640; A9270; C9113; J0171; J0330; J0694; J1100; J1170; J2405; J2704; J2710; J2795; J3010; J3490; J7121; J7620

== ENCOUNTER 2023-03-04 08:37 | Day surgery (SDC) | payer MEDICARE, BC ==
[2023-03-04] MEDS ORDERED: Sodium Chloride 0.9% 1,000 ML IV SCH (09:00)
[2023-03-04] MEDS ORDERED: fentaNYL 50 MCG/ML SDV ONE (09:47)
[2023-03-04] MEDS ORDERED: Propofol 200 MG/20 ML SDV ONE (09:47)
[2023-03-04] MEDS ORDERED: Midazolam 1 MG/ML 2 ML SDV ONE (09:47)
[2023-03-04 11:47] VITALS: BP 150/89; PULSE 68
== END 2023-03-04 11:51 | disposition home or self-care (01) ==
LOC: JP.SDS 08:37
PROVIDERS: ATTEND Surgery
DX: Z12.11 Encounter for screening for malignant neoplasm of colon (principal); I10 Essential (primary) hypertension; K21.9 Gastro-esophageal reflux disease without esophagitis; F32.A Depression, unspecified; I25.10 Atherosclerotic heart disease of native coronary artery without angina pectoris; Z86.010 Personal history of colon polyps; Z88.5 Allergy status to narcotic agent; Z88.6 Allergy status to analgesic agent; Z88.2 Allergy status to sulfonamides; Z88.8 Allergy status to other drugs, medicaments and biological substances
CPT/HCPCS: J2250; J2704; J3010; J7030

== ENCOUNTER 2024-10-12 14:19 | Emergency (ER) | payer MEDICARE, BC ==
[2024-10-12 15:25] LABS: BASOPHILS PERCENT AUTO 0.2 % (0.1-1.3); EOSINOPHILS ABSOLUTE AUTO 0.05 K/uL (0.00-0.40); EOSINOPHILS PERCENT AUTO 0.9 % (0.0-5.4); HEMATOCRIT 41.6 % (34.3-46.0); HEMOGLOBIN 14.4 g/dL (11.2-15.5); IMMATURE GRAN PERCENT AUTO 0.2 % (0.0-0.7); LYMPHOCYTES ABSOLUTE AUTO 1.05 K/uL (0.8-3.3); LYMPHOCYTES PERCENT AUTO 18.4 % (11.4-47.7); MEAN CORPUSCULAR HEMOGLOBIN 32.4 pg (31.6-35.5); MEAN CORPUSCULAR HGB CONC 34.6 g/dL (31.6-35.5); MEAN CORPUSCULAR VOLUME 93.7 fL (81.4-99.0); MONOCYTES PERCENT AUTO 12.3 % (3.3-12.6); NEUTROPHILS ABSOLUTE AUTO 3.88 K/uL (1.0-7.6); PLATELET COUNT,PLT 190 K/uL (130-375); RED BLOOD CELL COUNT 4.44 M/uL (3.77-5.24); WHITE BLOOD CELL COUNT,WBC 5.7 K/uL (3.2-11.0)
[2024-10-12 15:26] LABS: BASOPHILS ABSOLUTE AUTO 0.01 K/uL (0.00-0.10); IMMATURE GRAN ABSOLUTE AUTO 0.01 K/uL (0.00-0.23)
[2024-10-12 15:28] LABS: BASE EXCESS VENOUS 4.7 mm/L; METHEMOGLOBIN 1.1 %; O2 SATURATION VENOUS 88.7; OXYHEMOGLOBIN 82.4 %; PCO2 VENOUS 43.2 mm/Hg; PH,VENOUS 7.443 (7.350-7.450); PO2 VENOUS 54.3 mm/Hg; TOTAL HEMOGLOBIN 14.6 g/dL (12.0-16.0)
[2024-10-12 15:42] LABS: PROTHROMBIN TIME 10.3 sec (9.2-10.6)
[2024-10-12 15:53] LABS: ALANINE AMINOTRANSFERASE,ALT 30 U/L (12-78); ALBUMIN 3.5 g/dL (3.4-5.0); ALKALINE PHOSPHATASE 129 U/L (46-116); ANION GAP 12.3 mmol/L (5.0-14.0); ASPARTATE AMNIOTRANSFERASE,AST 22 U/L (15-37); BILIRUBIN TOTAL 0.5 mg/dL (0.2-1.0); BLOOD UREA NITROGEN,BUN 13 mg/dL (7-18); CALCIUM 9.7 mg/dL (8.5-10.1); CARBON DIOXIDE,CO2 30 mmol/L (21-32); CHLORIDE,CL 98 mmol/L (100-108); CREATININE 0.7 mg/dL (0.6-1.0); EST CRCL DRUG DOSING (CG) 67.29 mL/min; ESTIMATED GFR 93 mL/min (>60); GLUCOSE RANDOM 88 mg/dL (74-106); POTASSIUM,K 3.3 mmol/L (3.6-5.2); PRO B-TYPE NATRIUR PEPT,BNPPRO 784 pg/mL (5-125); PROTEIN TOTAL,TP 7.2 g/dL (6.4-8.2); SODIUM,NA 137 mmol/L (140-148); TROPONIN I HIGH SENSITIVITY 9.4 pg/mL (<=60.3)
[2024-10-12 16:02] LABS: CORONAVIRUS COVID-19 NAA NEGATIVE (NEGATIVE); INFLUENZA A NAA NEGATIVE (NEGATIVE); INFLUENZA B NAA NEGATIVE (NEGATIVE); RESPIRATORY SYNCYTIAL VIR NAA NEGATIVE (NEGATIVE)
[2024-10-12 16:35] LABS: APPEARANCE,URINE CLEAR (CLEAR); BILIRUBIN,URINE NEGATIVE (NEGATIVE); COLOR,URINE YELLOW (YELLOW); GLUCOSE,URINE NEGATIVE (NEGATIVE); KETONES,URINE NEGATIVE (NEGATIVE); LEUKOCYTE ESTERASE,URINE NEGATIVE (NEGATIVE); NITRITE,URINE NEGATIVE (NEGATIVE); OCCULT BLOOD,URINE NEGATIVE (NEGATIVE); PROTEIN,URINE NEGATIVE (NEGATIVE); UROBILINOGEN,URINE 0.2 EU/dL (0.2-1.0)
[2024-10-12 16:39] LABS: AMORPHOUS SEDIMENT,URINE NOT SEEN; BACTERIA,URINE FEW; EPITHELIAL CELLS,URINE RARE; MUCUS,URINE NOT SEEN; RBC,URINE 0-5 (0-5); WBC,URINE 0-5 (0-5)
[2024-10-12] MEDS: Albuterol/Ipratropium 3.0-0.5 MG/3 ML Neb Soln NEB ONE (16:48)
[2024-10-12] MEDS: Furosemide 20 MG Tab PO ONE (17:01)
[2024-10-12 17:02] VITALS: BP 142/98; PULSE 72
== END 2024-10-12 17:36 | disposition home or self-care (01) ==
LOC: JP.ED 14:19
DX: J44.1 Chronic obstructive pulmonary disease with (acute) exacerbation (principal); J01.01 Acute recurrent maxillary sinusitis; I10 Essential (primary) hypertension; E78.00 Pure hypercholesterolemia, unspecified; K21.9 Gastro-esophageal reflux disease without esophagitis; Z95.5 Presence of coronary angioplasty implant and graft; Z79.82 Long term (current) use of aspirin; Z79.899 Other long term (current) drug therapy; Z88.5 Allergy status to narcotic agent; Z88.1 Allergy status to other antibiotic agents; Z88.8 Allergy status to other drugs, medicaments and biological substances
CPT/HCPCS: 0241U; 36415; 71046; 80053; 81001; 82803; 83605; 83880; 84145; 84484; 85025; 85610; 93005; 93010; 94640; 99284; 99285; A9270; J7620

== ENCOUNTER 2025-05-06 11:16 | Emergency (ER) | payer MEDICARE, BC ==
[2025-05-06 12:12] LABS: BASOPHILS ABSOLUTE AUTO 0.03 K/uL (0.00-0.10); BASOPHILS PERCENT AUTO 0.5 % (0.1-1.3); EOSINOPHILS ABSOLUTE AUTO 0.06 K/uL (0.00-0.40); EOSINOPHILS PERCENT AUTO 1.1 % (0.0-5.4); HEMATOCRIT 40.7 % (34.3-46.0); HEMOGLOBIN 13.9 g/dL (11.2-15.5); IMMATURE GRAN PERCENT AUTO 0.4 % (0.0-0.7); LYMPHOCYTES ABSOLUTE AUTO 1.03 K/uL (0.8-3.3); LYMPHOCYTES PERCENT AUTO 18.9 % (11.4-47.7); MEAN CORPUSCULAR HEMOGLOBIN 32.3 pg (31.6-35.5); MEAN CORPUSCULAR HGB CONC 34.2 g/dL (31.6-35.5); MEAN CORPUSCULAR VOLUME 94.7 fL (81.4-99.0); MONOCYTES ABSOLUTE AUTO 0.62 K/uL (0.20-0.90); MONOCYTES PERCENT AUTO 11.4 % (3.3-12.6); NEUTROPHILS PERCENT AUTO 67.7 % (40.0-78.1); PLATELET COUNT,PLT 209 K/uL (130-375); WHITE BLOOD CELL COUNT,WBC 5.5 K/uL (3.2-11.0)
[2025-05-06 12:13] LABS: IMMATURE GRAN ABSOLUTE AUTO 0.02 K/uL (0.00-0.23)
[2025-05-06] MEDS: Iopamidol 612 MG/ML 100 ML Bottle IV SCH (12:33)
[2025-05-06] MEDS: Sodium Chloride 0.9% 10 ML Syringe FLUSH ONE (12:33)
[2025-05-06] MEDS: Sodium Chloride 0.9% 80 ML IV SCH (12:33)
[2025-05-06 12:44] LABS: ALANINE AMINOTRANSFERASE,ALT 29 U/L (12-78); ALBUMIN 3.6 g/dL (3.4-5.0); ALKALINE PHOSPHATASE 118 U/L (46-116); ASPARTATE AMNIOTRANSFERASE,AST 24 U/L (15-37); BILIRUBIN TOTAL 0.8 mg/dL (0.2-1.0); BLOOD UREA NITROGEN,BUN 8 mg/dL (7-18); CALCIUM 9.5 mg/dL (8.5-10.1); CARBON DIOXIDE,CO2 30 mmol/L (21-32); CHLORIDE,CL 97 mmol/L (100-108); CREATININE 0.6 mg/dL (0.6-1.0); EST CRCL DRUG DOSING (CG) 78.51 mL/min; ESTIMATED GFR 97 mL/min (>60); GLUCOSE RANDOM 98 mg/dL (74-106); PROTEIN TOTAL,TP 7.3 g/dL (6.4-8.2); SODIUM,NA 134 mmol/L (140-148)
[2025-05-06 12:49] LABS: C-REACTIVE PROTEIN < 0.50 mg/dL (<0.50)
[2025-05-06 13:35] VITALS: BP 135/64; PULSE 62
[2025-05-06] MEDS ORDERED: Na Phos,M-B/Na Phos,DI-B 60 ML, Mineral Oil 50 ML, Docusate Sodium 400 MG, Magnesium Ci... RECTAL ONE (13:45)
[2025-05-06] MEDS: Na Phos,M-B/Na Phos,DI-B 60 ML, Mineral Oil 50 ML, Docusate Sodium 400 MG, Magnesium Ci... RECTAL ONE (14:14)
== END 2025-05-06 15:33 | disposition home or self-care (01) ==
LOC: JP.ED 11:16
DX: K59.00 Constipation, unspecified (principal); E78.00 Pure hypercholesterolemia, unspecified; I10 Essential (primary) hypertension; J44.9 Chronic obstructive pulmonary disease, unspecified; F17.210 Nicotine dependence, cigarettes, uncomplicated; Z88.8 Allergy status to other drugs, medicaments and biological substances; Z88.5 Allergy status to narcotic agent; Z79.82 Long term (current) use of aspirin; Z79.899 Other long term (current) drug therapy; Z79.51 Long term (current) use of inhaled steroids
CPT/HCPCS: 36415; 74177; 80053; 83605; 83690; 85025; 86140; 99284; Q9967

== ENCOUNTER 2025-09-07 10:10 | Emergency (ER) | payer MEDICARE, BC ==
[2025-09-07 10:36] VITALS: BP 150/84; PULSE 85
[2025-09-07] MEDS ORDERED: Sodium Chloride 0.9% 10 ML Syringe FLUSH PRN (10:54)
[2025-09-07] MEDS: fentaNYL 100 MCG/2 ML SDV IVPUSH ONE (11:06)
[2025-09-07 11:07] LABS: BASOPHILS PERCENT AUTO 0.3 % (0.1-1.3); EOSINOPHILS ABSOLUTE AUTO 0.04 K/uL (0.00-0.40); EOSINOPHILS PERCENT AUTO 0.5 % (0.0-5.4); IMMATURE GRAN PERCENT AUTO 0.3 % (0.0-0.7); LYMPHOCYTES ABSOLUTE AUTO 1.02 K/uL (0.8-3.3); LYMPHOCYTES PERCENT AUTO 13.1 % (11.4-47.7); MONOCYTES ABSOLUTE AUTO 0.52 K/uL (0.20-0.90); MONOCYTES PERCENT AUTO 6.7 % (3.3-12.6); NEUTROPHILS ABSOLUTE AUTO 6.15 K/uL (1.0-7.6); NEUTROPHILS PERCENT AUTO 79.1 % (40.0-78.1); PLATELET COUNT,PLT 237 K/uL (130-375); RED BLOOD CELL COUNT 4.35 M/uL (3.77-5.24); WHITE BLOOD CELL COUNT,WBC 7.8 K/uL (3.2-11.0)
[2025-09-07 11:08] LABS: BASOPHILS ABSOLUTE AUTO 0.02 K/uL (0.00-0.10); IMMATURE GRAN ABSOLUTE AUTO 0.02 K/uL (0.00-0.23)
[2025-09-07] MEDS: Sodium Chloride 0.9% 10 ML Syringe FLUSH ONE (11:25)
[2025-09-07] MEDS: Iopamidol 612 MG/ML 100 ML Bottle IV SCH (11:25)
[2025-09-07 11:26] LABS: A/G RATIO 1.0 (1.2-2.2); ALANINE AMINOTRANSFERASE,ALT 33 U/L (12-78); ASPARTATE AMNIOTRANSFERASE,AST 31 U/L (15-37); BILIRUBIN TOTAL 0.8 mg/dL (0.2-1.0); BLOOD UREA NITROGEN,BUN 10 mg/dL (7-18); CARBON DIOXIDE,CO2 29 mmol/L (21-32); CHLORIDE,CL 98 mmol/L (100-108); CREATININE 0.6 mg/dL (0.6-1.0); EST CRCL DRUG DOSING (CG) 77.38 mL/min; ESTIMATED GFR 96 mL/min (>60); GLUCOSE RANDOM 86 mg/dL (74-106); POTASSIUM,K 3.8 mmol/L (3.6-5.2); PROTEIN TOTAL,TP 7.6 g/dL (6.4-8.2); SODIUM,NA 134 mmol/L (140-148)
== END 2025-09-07 12:29 | disposition home or self-care (01) ==
LOC: JP.ED 10:10
DX: K59.04 Chronic idiopathic constipation (principal); I10 Essential (primary) hypertension; E78.00 Pure hypercholesterolemia, unspecified; J44.9 Chronic obstructive pulmonary disease, unspecified; F17.200 Nicotine dependence, unspecified, uncomplicated; K21.9 Gastro-esophageal reflux disease without esophagitis; Z90.49 Acquired absence of other specified parts of digestive tract; Z79.82 Long term (current) use of aspirin; Z79.899 Other long term (current) drug therapy; Z88.8 Allergy status to other drugs, medicaments and biological substances; Z88.2 Allergy status to sulfonamides; Z88.5 Allergy status to narcotic agent
CPT/HCPCS: 36415; 74177; 80053; 83605; 83690; 85025; 96361; 96374; 99284; J3010; J7030; Q9967